=== PATIENT | male | born 1995 | race Caucasian/White ===

== ENCOUNTER 2019-09-08 21:09 | Emergency (ER) | payer SELFPAY ==
[~2019-09-08] VITALS: Ht 180.3 cm; Wt 76.7 kg
[2019-09-08 21:11] VITALS: Ht 180.3 cm; Wt 76.7 kg
[2019-09-09 01:19] VITALS: BP 128/65
== END 2019-09-09 01:00 | disposition home or self-care (01) ==
LOC: ED 21:09
DX: S43.014A Anterior dislocation of right humerus, initial encounter (principal); W21.01XA Struck by football, initial encounter; Y93.61 Activity, american tackle football; Y92.89 Other specified places as the place of occurrence of the external cause; Y99.8 Other external cause status
CPT/HCPCS: J2704; J3010; J7030; Q0092